=== PATIENT | female | born 1935 | race African-American/Black ===

== ENCOUNTER 2023-11-17 16:18 | Inpatient (IN) | payer OTHER ==
[2023-11-17] MEDS: LACTATED RINGERS SOLUTION 1000 ML INFUS.BAG IV ONE (18:10)
[2023-11-17 18:16] LABS: VENOUS BASE EXCESS -0.2 mmol/L (-2-2); VENOUS O2 SATURATION 63.7 % (70-80); VENOUS PH 7.376 (7.310-7.410)
[2023-11-17 18:24] LABS: BASO % 0.2 % (0-2.0); EOS % 0.1 % (0-4.5); HEMATOCRIT 39.5 % (32.4-45.2); HEMOGLOBIN 12.5 GM/dL (10.7-15.3); LYMPH % 15.6 % (8-40); MCH 29.8 pg (25.7-33.7); MCHC 31.6 g/dl (32.0-36.0); MEAN CELL VOLUME 94.3 fl (80-96); MEAN PLT VOLUME 9.2 fl (7.5-11.1); MONO % 12.6 % (3.8-10.2); NEUT % 71.5 % (42.8-82.8); PLATELET COUNT 131 10^3/uL (134-434); RBC 4.19 M/mm3 (3.60-5.2); RDW 14.6 % (11.6-15.6); WHITE BLOOD COUNT 7.9 K/mm3 (4.0-10.0)
[2023-11-17 18:25] LABS: INR 1.04 (0.83-1.09); PROTHROMBIN TIME (PATIENT) 12.1 SEC (9.7-13.0)
[2023-11-17 18:27] LABS: ACTIVATED PTT 26.7 SECONDS (25.2-36.5)
[2023-11-17 19:11] LABS: POTASSIUM 4.1 mmol/L (3.5-5.1)
[2023-11-17 19:15] LABS: ALBUMIN 3.1 g/dl (3.4-5.0); BLOOD UREA NITROGEN 13.7 mg/dL (7-18)
[2023-11-17 19:18] LABS: CREATININE 1.2 mg/dL (0.55-1.3)
[2023-11-17 19:20] LABS: BILIRUBIN,TOTAL 0.3 mg/dL (0.2-1); TOT PROT 7.7 g/dl (6.4-8.2)
[2023-11-17 19:22] LABS: PH,URINE 8.5 (5.0-8.0); URINE APPEARANCE CLEAR; URINE BILIRUBIN NEGATIVE (NEGATIVE); URINE COLOR YELLOW; URINE GLUCOSE (UA) NEGATIVE (NEGATIVE); URINE KETONE NEGATIVE (NEGATIVE); URINE LEUK ESTERASE NEGATIVE (NEGATIVE); URINE NITRITE NEGATIVE (NEGATIVE); URINE PROTEIN NEGATIVE (NEGATIVE); URINE UROBILINOGEN 0.2 mg/dL (0.2-1.0)
[2023-11-17] MEDS ORDERED: CEFTRIAXONE 1 GM/50 ML BAG ONE (19:25)
[2023-11-17] MEDS ORDERED: ACETAMINOPHEN INJECTION 100 ML IVPB ONE (19:25)
[2023-11-17] MEDS: ACETAMINOPHEN 1000 MG/100 ML BAG IVPB ONE (19:48)
[2023-11-17] MEDS: CEFTRIAXONE 1,000 MG in DEXTROSE 5%-WATER - 50 ML IVPB ONE (20:10)
[2023-11-17] MEDS ORDERED: DOXYCYCLINE HYCLATE 100 MG VIAL ONE (21:13)
[2023-11-17] MEDS ORDERED: DIVALPROEX SODIUM 500 MG TABLET E.C. ONE (21:13)
[2023-11-17] MEDS: DIVALPROEX NA *ER* EXTEND REL 500 MG TABLET.SA (FP) PO ONE (21:30)
[2023-11-17] MEDS: DOXYCYCLINE INJECTION 100 MG in DEXTROSE 5%-WATER 100 ML IVPB ONE (21:30)
[2023-11-17] MEDS ORDERED: ASPIRIN 81 MG CHEWABLE TABLETS ONE (21:47)
[2023-11-17] MEDS: ASPIRIN 81 MG CHEWABLE TABLETS PO ONE (21:57)
[2023-11-17 23:23] LABS: LACTIC ACID 2.5 mmol/L (0.4-2.0)
[2023-11-18] MEDS: SODIUM CHLORIDE 1,000 ML IV SCH (02:10)
[2023-11-18 07:37] LABS: POTASSIUM 4.1 mmol/L (3.5-5.1)
[2023-11-18 07:40] LABS: BASO % 0.6 % (0-2.0); EOS % 0.7 % (0-4.5); HEMATOCRIT 37.4 % (32.4-45.2); HEMOGLOBIN 12.3 GM/dL (10.7-15.3); LYMPH % 30.8 % (8-40); MCH 30.5 pg (25.7-33.7); MCHC 32.9 g/dl (32.0-36.0); MEAN CELL VOLUME 92.8 fl (80-96); MEAN PLT VOLUME 9.8 fl (7.5-11.1); MONO % 10.5 % (3.8-10.2); NEUT % 57.4 % (42.8-82.8); PLATELET COUNT 81 10^3/uL (134-434); RBC 4.03 M/mm3 (3.60-5.2); RDW 14.3 % (11.6-15.6); WHITE BLOOD COUNT 7.7 K/mm3 (4.0-10.0)
[2023-11-18 07:43] LABS: CALCIUM 9.3 mg/dL (8.5-10.1)
[2023-11-18 07:44] LABS: ALBUMIN 2.7 g/dl (3.4-5.0); BLOOD UREA NITROGEN 11.1 mg/dL (7-18); MAGNESIUM 2.2 mg/dL (1.8-2.4)
[2023-11-18 07:48] LABS: BILIRUBIN,TOTAL 0.5 mg/dL (0.2-1)
[2023-11-18 07:56] LABS: LACTIC ACID 2.1 mmol/L (0.4-2.0)
[2023-11-18] MEDS: ASPIRIN 81 MG CHEWABLE TABLETS PO SCH (09:54)
[2023-11-18] MEDS: ENOXAPARIN NA (PORCINE) 40 MG/0.4 ML DISP.SYRIN SQ SCH (09:54)
[2023-11-18] MEDS: TOLTERODINE TARTRATE LA 4 MG CAP.SR.24H (FP) PO SCH (09:54)
[2023-11-18] MEDS: PANTOPRAZOLE 40 MG TABLET PO SCH (09:54)
[2023-11-18] MEDS: CLOPIDOGREL BISULFATE 75 MG TABLET (FP) PO SCH (09:54)
[2023-11-18] MEDS ORDERED: PATIENT'S OWN MEDICATION (NON-FORMULARY) (Donepezil Hcl [Donepezil Hcl] 23 MG Tablet) PO SCH (10:00)
[2023-11-18] MEDS ORDERED: ASPIRIN COATED 81 MG TABLET.EC PO SCH (10:00)
[2023-11-18] MEDS: ERTAPENEM SODIUM 1 GM in SODIUM CHLORIDE 50 ML IVPB SCH (10:55)
[2023-11-18] MEDS: QUEtiapine FUMARATE 25 MG TABLET PO SCH (21:24)
[2023-11-18] MEDS: DIVALPROEX NA *ER* EXTEND REL 500 MG TABLET.SA (FP) PO SCH (21:24)
[2023-11-18] MEDS: ATORVASTATIN CA 40 MG TABLET (FP) PO SCH (21:25)
[2023-11-18] MEDS: MELATONIN 1 MG TABLET PO SCH (21:25)
[2023-11-19 08:08] LABS: HEMATOCRIT 31.9 % (32.4-45.2); HEMOGLOBIN 10.5 GM/dL (10.7-15.3); MCH 30.7 pg (25.7-33.7); MCHC 32.9 g/dl (32.0-36.0); MEAN CELL VOLUME 93.5 fl (80-96); MEAN PLT VOLUME 9.3 fl (7.5-11.1); PLATELET COUNT 141 10^3/uL (134-434); RBC 3.42 M/mm3 (3.60-5.2); RDW 14.3 % (11.6-15.6); WHITE BLOOD COUNT 6.4 K/mm3 (4.0-10.0)
[2023-11-19 08:29] LABS: BLOOD UREA NITROGEN 9.1 mg/dL (7-18); MAGNESIUM 2.2 mg/dL (1.8-2.4)
[2023-11-19 08:30] LABS: ALBUMIN 2.4 g/dl (3.4-5.0)
[2023-11-19 08:33] LABS: BILIRUBIN,TOTAL 0.4 mg/dL (0.2-1); CREATININE 0.8 mg/dL (0.55-1.3); TOT PROT 6.4 g/dl (6.4-8.2)
[2023-11-19 18:39] LABS: LACTIC ACID 2.1 mmol/L (0.4-2.0)
[2023-11-19] MEDS: SODIUM CHLORIDE 1,000 ML IV SCH (19:30)
[2023-11-20 07:32] LABS: POTASSIUM 4.1 mmol/L (3.5-5.1)
[2023-11-20 07:43] LABS: CALCIUM 8.6 mg/dL (8.5-10.1)
[2023-11-20 07:44] LABS: ALBUMIN 2.5 g/dl (3.4-5.0); BLOOD UREA NITROGEN 9.1 mg/dL (7-18); MAGNESIUM 2.2 mg/dL (1.8-2.4)
[2023-11-20 07:48] LABS: BILIRUBIN,TOTAL 0.4 mg/dL (0.2-1)
[2023-11-20 07:49] LABS: TOT PROT 6.3 g/dl (6.4-8.2)
[2023-11-20 08:25] LABS: HEMATOCRIT 33.7 % (32.4-45.2); MCH 30.7 pg (25.7-33.7); MCHC 32.8 g/dl (32.0-36.0); MEAN CELL VOLUME 93.7 fl (80-96); PLATELET COUNT 172 10^3/uL (134-434); WHITE BLOOD COUNT 6.6 K/mm3 (4.0-10.0)
[2023-11-20] MEDS: ACETAMINOPHEN 325 MG TABLET (FP) PO PRN (17:01)
[2023-11-21 08:20] LABS: POTASSIUM 3.9 mmol/L (3.5-5.1)
[2023-11-21 08:38] LABS: ALBUMIN 2.4 g/dl (3.4-5.0); BLOOD UREA NITROGEN 8.3 mg/dL (7-18); MAGNESIUM 2.5 mg/dL (1.8-2.4)
[2023-11-21 08:41] LABS: CREATININE 0.9 mg/dL (0.55-1.3)
[2023-11-21 08:43] LABS: BILIRUBIN,TOTAL 0.5 mg/dL (0.2-1); TOT PROT 6.5 g/dl (6.4-8.2)
[2023-11-21 08:49] LABS: BASO % 0.8 % (0-2.0); EOS % 0.2 % (0-4.5); HEMATOCRIT 34.7 % (32.4-45.2); HEMOGLOBIN 11.3 GM/dL (10.7-15.3); LYMPH % 20.4 % (8-40); MCH 30.2 pg (25.7-33.7); MCHC 32.5 g/dl (32.0-36.0); MEAN CELL VOLUME 93.2 fl (80-96); MEAN PLT VOLUME 8.8 fl (7.5-11.1); MONO % 10.2 % (3.8-10.2); NEUT % 68.4 % (42.8-82.8); PLATELET COUNT 205 10^3/uL (134-434); RBC 3.72 M/mm3 (3.60-5.2); RDW 13.9 % (11.6-15.6); WHITE BLOOD COUNT 7.5 K/mm3 (4.0-10.0)
[2023-11-21] MEDS: metoPROLOL SUCCINATE 25 MG TAB.SR.24H (FP) PO SCH (13:00)
[2023-11-21] MEDS: CEFEPIME HCL 1 GM VIAL (RESTRICTED TO ID) IVPB SCH (13:12)
[2023-11-21] MEDS: CEFEPIME 1 GM in DEXTROSE 5%-WATER 100 ML IVPB SCH (14:27)
[2023-11-21] MEDS: ACETAMINOPHEN 1000 MG/100 ML BAG IVPB PRN (21:41)
[2023-11-21] MEDS: DONEPEZIL HCL 5 MG TABLET (FP) PO SCH (22:04)
[2023-11-22 07:07] LABS: HEMATOCRIT 34.9 % (32.4-45.2); HEMOGLOBIN 11.5 GM/dL (10.7-15.3); MCH 31.2 pg (25.7-33.7); MEAN CELL VOLUME 94.5 fl (80-96); MEAN PLT VOLUME 8.6 fl (7.5-11.1); PLATELET COUNT 211 10^3/uL (134-434); RBC 3.69 M/mm3 (3.60-5.2); RDW 13.6 % (11.6-15.6); WHITE BLOOD COUNT 8.6 K/mm3 (4.0-10.0)
[2023-11-22 07:41] LABS: ALBUMIN 2.5 g/dl (3.4-5.0); BLOOD UREA NITROGEN 11.8 mg/dL (7-18); MAGNESIUM 2.3 mg/dL (1.8-2.4)
[2023-11-22 07:44] LABS: BILIRUBIN,TOTAL 0.4 mg/dL (0.2-1); PHOSPHOROUS 3.3 mg/dL (2.5-4.9); TOT PROT 6.8 g/dl (6.4-8.2); URIC ACID 3.9 mg/dL (2.6-7.2)
[2023-11-22] MEDS: ASPIRIN COATED 81 MG TABLET.EC PO SCH (10:37)
[2023-11-22] MEDS: MINERAL OIL ENEMA 133 ML ENEMA RC ONE (18:44)
[2023-11-23 08:33] LABS: HEMATOCRIT 32.2 % (32.4-45.2); HEMOGLOBIN 10.8 GM/dL (10.7-15.3); MCHC 33.5 g/dl (32.0-36.0); MEAN CELL VOLUME 92.6 fl (80-96); MEAN PLT VOLUME 8.4 fl (7.5-11.1); PLATELET COUNT 258 10^3/uL (134-434); RBC 3.48 M/mm3 (3.60-5.2); WHITE BLOOD COUNT 8.4 K/mm3 (4.0-10.0)
[2023-11-23 08:50] LABS: POTASSIUM 3.9 mmol/L (3.5-5.1)
[2023-11-23 08:56] LABS: CALCIUM 8.7 mg/dL (8.5-10.1)
[2023-11-23 08:57] LABS: ALBUMIN 2.3 g/dl (3.4-5.0); BLOOD UREA NITROGEN 11.5 mg/dL (7-18); MAGNESIUM 2.2 mg/dL (1.8-2.4); PHOSPHOROUS 2.7 mg/dL (2.5-4.9)
[2023-11-23 08:59] LABS: URIC ACID 3.7 mg/dL (2.6-7.2)
[2023-11-23 09:00] LABS: CREATININE 0.9 mg/dL (0.55-1.3); TOT PROT 6.4 g/dl (6.4-8.2)
[2023-11-23 09:02] LABS: BILIRUBIN,TOTAL 0.3 mg/dL (0.2-1)
[2023-11-23] MEDS ORDERED: ACETAMINOPHEN 1000 MG/100 ML BAG IVPB PRN (16:37)
[2023-11-23] MEDS: POLYETHYLENE GLYCOL (HEALTHYLAX) 3350 17 GM PACKET PO SCH (17:09)
[2023-11-23 19:25] LABS: BF WBC & OTHER NUCLEATED CELLS 10050 /mm3
[2023-11-23 19:27] LABS: BF WBC & OTHER NUCLEATED CELLS 8012 /mm3
[2023-11-23 20:52] LABS: BODY FLUID MACROPHAGES 1 %; BODY FLUID MONOCYTE 14 %; BODY FLUID MONOCYTE 5 %
[2023-11-24 07:46] LABS: HEMOGLOBIN 10.8 GM/dL (10.7-15.3); MCH 30.6 pg (25.7-33.7); MCHC 32.7 g/dl (32.0-36.0); MEAN CELL VOLUME 93.8 fl (80-96); MEAN PLT VOLUME 7.9 fl (7.5-11.1); PLATELET COUNT 317 10^3/uL (134-434); RBC 3.52 M/mm3 (3.60-5.2); RDW 13.9 % (11.6-15.6); WHITE BLOOD COUNT 7.5 K/mm3 (4.0-10.0)
[2023-11-24 08:21] LABS: POTASSIUM 4.2 mmol/L (3.5-5.1)
[2023-11-24 08:27] LABS: CALCIUM 8.9 mg/dL (8.5-10.1)
[2023-11-24 08:28] LABS: ALBUMIN 2.2 g/dl (3.4-5.0); BLOOD UREA NITROGEN 12.8 mg/dL (7-18); MAGNESIUM 2.3 mg/dL (1.8-2.4)
[2023-11-24 08:30] LABS: BILIRUBIN,TOTAL 0.4 mg/dL (0.2-1)
[2023-11-24 08:31] LABS: CREATININE 0.9 mg/dL (0.55-1.3); PHOSPHOROUS 2.7 mg/dL (2.5-4.9); TOT PROT 6.5 g/dl (6.4-8.2)
[2023-11-24] MEDS: SENNOSIDES 8.6MG TABLET (FP) PO ONE (10:04)
[2023-11-24 11:51] VITALS: BMI 24.6
[2023-11-24 17:35] LABS: BF WBC & OTHER NUCLEATED CELLS 2101 /mm3
[2023-11-24 17:36] LABS: BODY FLUID MESOTHELIAL 10 %; BODY FLUID MONOCYTE 20 %
[2023-11-24] MEDS: DOCUSATE SODIUM 100 MG CAPSULE (FP) PO SCH (22:05)
[2023-11-25 07:13] LABS: HEMATOCRIT 29.6 % (32.4-45.2); MCH 31.3 pg (25.7-33.7); MCHC 33.6 g/dl (32.0-36.0); MEAN CELL VOLUME 93.1 fl (80-96); MEAN PLT VOLUME 7.7 fl (7.5-11.1); PLATELET COUNT 321 10^3/uL (134-434); RBC 3.18 M/mm3 (3.60-5.2); WHITE BLOOD COUNT 5.8 K/mm3 (4.0-10.0)
[2023-11-25 07:27] LABS: POTASSIUM 3.9 mmol/L (3.5-5.1)
[2023-11-25 07:33] LABS: BLOOD UREA NITROGEN 15.7 mg/dL (7-18); CALCIUM 8.8 mg/dL (8.5-10.1)
[2023-11-25 07:34] LABS: MAGNESIUM 2.2 mg/dL (1.8-2.4)
[2023-11-25 07:36] LABS: CREATININE 0.8 mg/dL (0.55-1.3); PHOSPHOROUS 2.3 mg/dL (2.5-4.9)
[2023-11-25 07:38] LABS: BILIRUBIN,TOTAL 0.4 mg/dL (0.2-1); TOT PROT 5.8 g/dl (6.4-8.2)
[2023-11-25] MEDS: CEFUROXIME AXETIL 250 MG TABLET PO ONE (12:24)
[2023-11-25] MEDS: MAGNESIUM HYDROX 2400MG/30ML ORAL SUSPENSION 30 ML CUP PO ONE (14:28)
[2023-11-25] MEDS: ONDANSETRON *ODT* 4 MG TABLET SL ONE (16:31)
[2023-11-25] MEDS: FAMOTIDINE 20 MG TABLET PO ONE (16:31)
[2023-11-25] MEDS ORDERED: CEFUROXIME AXETIL 250 MG TABLET PO SCH (22:00)
[2023-11-25] MEDS ORDERED: CEFEPIME HCL 1 GM VIAL (RESTRICTED TO ID) IVPB SCH (22:00)
[2023-11-25] MEDS: CEFEPIME 1 GM in DEXTROSE 5%-WATER 100 ML IVPB SCH (23:50)
[2023-11-26 07:19] LABS: HEMATOCRIT 31.4 % (32.4-45.2); HEMOGLOBIN 10.1 GM/dL (10.7-15.3); MCH 30.1 pg (25.7-33.7); MCHC 32.1 g/dl (32.0-36.0); MEAN CELL VOLUME 93.8 fl (80-96); PLATELET COUNT 345 10^3/uL (134-434); RBC 3.35 M/mm3 (3.60-5.2); RDW 13.9 % (11.6-15.6); WHITE BLOOD COUNT 6.8 K/mm3 (4.0-10.0)
[2023-11-26 07:41] LABS: POTASSIUM 4.2 mmol/L (3.5-5.1)
[2023-11-26 07:49] LABS: CALCIUM 8.5 mg/dL (8.5-10.1)
[2023-11-26 07:50] LABS: BLOOD UREA NITROGEN 18.6 mg/dL (7-18); MAGNESIUM 2.3 mg/dL (1.8-2.4)
[2023-11-26 07:53] LABS: CREATININE 0.8 mg/dL (0.55-1.3); PHOSPHOROUS 2.4 mg/dL (2.5-4.9)
[2023-11-26 07:55] LABS: BILIRUBIN,TOTAL 0.4 mg/dL (0.2-1); TOT PROT 5.8 g/dl (6.4-8.2)
[2023-11-26 11:24] VITALS: BP 123/73; PULSE 72; RESP 16; TEMP 97.9
[2023-11-29 15:07] LABS: BODY FLUID ALBUMIN 1.8 g/dL (Not Estab.)
== END 2023-11-26 15:18 | disposition home or self-care (01) | DRG 177 ==
LOC: JER 16:18 → JERBED 19:35 → J4W 11-18 15:16
PROVIDERS: ADMIT Internal Medicine; ATTEND Internal Medicine
PROC: 0S9D3ZZ Drainage of Left Knee Joint, Percutaneous Approach (ICD-10-PCS; 2023-11-23)
PROC: 0S9C3ZZ Drainage of Right Knee Joint, Percutaneous Approach (ICD-10-PCS; 2023-11-23)
PROC: 0W993ZZ Drainage of Right Pleural Cavity, Percutaneous Approach (ICD-10-PCS; principal; 2023-11-24)
DX: J69.0 Pneumonitis due to inhalation of food and vomit (principal); G93.41 Metabolic encephalopathy; J98.11 Atelectasis; I24.89 Other forms of acute ischemic heart disease; F03.90 Unspecified dementia, unspecified severity, without behavioral disturbance, psychotic disturbance, mood disturbance, and anxiety; G25.0 Essential tremor; R29.810 Facial weakness; M25.462 Effusion, left knee; M25.461 Effusion, right knee; G40.909 Epilepsy, unspecified, not intractable, without status epilepticus
CPT/HCPCS: 0241U-QW; 36415; 70450-TC; 70551-TC; 71045-TC-FY; 71250-TC; 73560-TC-LT-FY; 73560-TC-RT-FY; 74230-TC-FY; 76604; 76604-TC; 76942; 80048; 80053; 80061; 80164; 81003; 82042; 82150; 82465; 82803; 82945; 82962; 83605; 83615; 83735; 83986; 84100; 84157; 84443; 84478; 84484; 84550; 85025; 85027; 85610; 85730; 86850; 86900; 86901; 87040; 87070; 87075; 87086; 87102; 87116; 87205; 87206; 87210; 87899; 88108; 88305-TC; 89060; 92611-GN; 93005; 93010; 93306-TC; 93308; 97116-GP; 97162-GP; 99285-25; J0131; Q0162

== ENCOUNTER 2024-01-26 00:47 | Observation (INO) | payer OTHER ==
[2024-01-26 01:52] LABS: BASO % 0.6 % (0-2.0); EOS % 1.1 % (0-4.5); HEMATOCRIT 32.3 % (32.4-45.2); HEMOGLOBIN 10.9 GM/dL (10.7-15.3); MCH 31.2 pg (25.7-33.7); MCHC 33.7 g/dl (32.0-36.0); MEAN CELL VOLUME 92.7 fl (80-96); MEAN PLT VOLUME 8.7 fl (7.5-11.1); NEUT % 33.3 % (42.8-82.8); PLATELET COUNT 163 10^3/uL (134-434); RBC 3.49 M/mm3 (3.60-5.2); RDW 14.8 % (11.6-15.6); WHITE BLOOD COUNT 5.7 K/mm3 (4.0-10.0)
[2024-01-26 02:03] LABS: CHLORIDE 104 mmol/L (98-107); POTASSIUM 4.8 mmol/L (3.5-5.1); SODIUM 136 mmol/L (136-145)
[2024-01-26 02:05] LABS: CALCIUM 8.9 mg/dL (8.5-10.1)
[2024-01-26 02:06] LABS: ALBUMIN 2.7 g/dl (3.4-5.0); ANION GAP 6 mmol/L (4-13); CO2 27 mmol/L (21-32)
[2024-01-26 02:07] LABS: GLUCOSE,RANDOM 86 mg/dL (74-106)
[2024-01-26 02:09] LABS: SGOT/AST 20 U/L (15-37)
[2024-01-26 02:10] LABS: CHOLESTEROL 115 mg/dL (50-200)
[2024-01-26 02:11] LABS: TOT PROT 6.2 g/dl (6.4-8.2)
[2024-01-26 02:12] LABS: BILIRUBIN,TOTAL 0.2 mg/dL (0.2-1); LDL CHOLESTEROL (ONLY SJRH) 63 mg/dL (5-100)
[2024-01-26 02:13] LABS: ALK PHOS 93 U/L (45-117); HDL CHOLESTEROL 44 mg/dL (40-60)
[2024-01-26 02:20] LABS: SGPT/ALT 17 U/L (13-61)
[2024-01-26 02:26] LABS: PH,URINE 7.5 (5.0-8.0); URINE APPEARANCE CLEAR; URINE BILIRUBIN NEGATIVE (NEGATIVE); URINE COLOR YELLOW; URINE GLUCOSE (UA) NEGATIVE (NEGATIVE); URINE KETONE NEGATIVE (NEGATIVE); URINE LEUK ESTERASE NEGATIVE (NEGATIVE); URINE NITRITE NEGATIVE (NEGATIVE); URINE PROTEIN NEGATIVE (NEGATIVE); URINE UROBILINOGEN 0.2 mg/dL (0.2-1.0)
[2024-01-26] MEDS ORDERED: ATORVASTATIN CA 80 MG TABLET (FP) ONE (02:59)
[2024-01-26] MEDS ORDERED: ASPIRIN 81 MG CHEWABLE TABLETS ONE (03:00)
[2024-01-26] MEDS: ASPIRIN 81 MG CHEWABLE TABLETS PO ONE (03:06)
[2024-01-26] MEDS: ATORVASTATIN CA 80 MG TABLET (FP) PO ONE (03:06)
[2024-01-26 07:19] LABS: BASO % 0.9 % (0-2.0); HEMATOCRIT 37.8 % (32.4-45.2); HEMOGLOBIN 12.4 GM/dL (10.7-15.3); MCH 30.6 pg (25.7-33.7); MCHC 32.7 g/dl (32.0-36.0); MEAN CELL VOLUME 93.3 fl (80-96); MONO % 7.5 % (3.8-10.2); NEUT % 40.6 % (42.8-82.8); PLATELET COUNT 174 10^3/uL (134-434); RBC 4.05 M/mm3 (3.60-5.2); RDW 14.6 % (11.6-15.6); WHITE BLOOD COUNT 5.6 K/mm3 (4.0-10.0)
[2024-01-26 07:36] LABS: POTASSIUM 4.3 mmol/L (3.5-5.1)
[2024-01-26 07:47] LABS: BLOOD UREA NITROGEN 15.2 mg/dL (7-18); MAGNESIUM 2.2 mg/dL (1.8-2.4)
[2024-01-26 07:50] LABS: PHOSPHOROUS 3.1 mg/dL (2.5-4.9)
[2024-01-26 07:52] LABS: TOT PROT 7.8 g/dl (6.4-8.2)
[2024-01-26 07:53] LABS: BILIRUBIN,TOTAL 0.3 mg/dL (0.2-1)
[2024-01-26 08:04] LABS: ALBUMIN 3.3 g/dl (3.4-5.0)
[2024-01-26] MEDS: ASPIRIN COATED 81 MG TABLET.EC PO SCH (09:27)
[2024-01-26] MEDS: ENOXAPARIN NA (PORCINE) 40 MG/0.4 ML DISP.SYRIN SQ SCH (09:27)
[2024-01-26] MEDS: metoPROLOL SUCCINATE 25 MG TAB.SR.24H (FP) PO SCH (09:27)
[2024-01-26] MEDS: ATORVASTATIN CA 40 MG TABLET (FP) PO SCH (21:56)
[2024-01-26] MEDS: QUEtiapine FUMARATE 25 MG TABLET PO SCH (21:56)
[2024-01-26] MEDS: DIVALPROEX NA *ER* EXTEND REL 500 MG TABLET.SA (FP) PO SCH (21:56)
[2024-01-28 07:24] LABS: BASO % 1.2 % (0-2.0); HEMATOCRIT 37.9 % (32.4-45.2); HEMOGLOBIN 12.5 GM/dL (10.7-15.3); LYMPH % 56.5 % (8-40); MEAN CELL VOLUME 93.9 fl (80-96); MEAN PLT VOLUME 9.4 fl (7.5-11.1); MONO % 7.8 % (3.8-10.2); NEUT % 31.5 % (42.8-82.8); PLATELET COUNT 160 10^3/uL (134-434); RBC 4.04 M/mm3 (3.60-5.2); WHITE BLOOD COUNT 5.4 K/mm3 (4.0-10.0)
[2024-01-28 07:51] LABS: MAGNESIUM 2.2 mg/dL (1.8-2.4)
[2024-01-28 07:55] LABS: PHOSPHOROUS 4.5 mg/dL (2.5-4.9)
[2024-01-28 08:48] VITALS: BP 132/48; PULSE 78; RESP 16; TEMP 97.7
[2024-01-28 13:22] VITALS: BMI 24.0
== END 2024-01-28 13:15 | disposition home or self-care (01) ==
LOC: JER 00:47 → JERBED 01:58 → J4W 04:58
PROVIDERS: ADMIT Internal Medicine
PROC: 3E023GC Introduction of Other Therapeutic Substance into Muscle, Percutaneous Approach (ICD-10-PCS; principal; 2024-01-26)
DX: G45.9 Transient cerebral ischemic attack, unspecified (principal); F03.90 Unspecified dementia, unspecified severity, without behavioral disturbance, psychotic disturbance, mood disturbance, and anxiety; G25.0 Essential tremor; R56.9 Unspecified convulsions; R29.810 Facial weakness; I25.10 Atherosclerotic heart disease of native coronary artery without angina pectoris; Z86.73 Personal history of transient ischemic attack (TIA), and cerebral infarction without residual deficits; Z88.0 Allergy status to penicillin; Z88.5 Allergy status to narcotic agent; Z91.011 Allergy to milk products; R63.4 Abnormal weight loss
CPT/HCPCS: 36415; 70450-TC; 70496-TC; 70498-TC; 70551-TC; 71045-TC-FY; 73030-TC-RT-FY; 74230-TC-FY; 80053; 80061; 80164; 81003; 82550; 82728; 82962; 83036; 83540; 83550; 83735; 84100; 84439; 84443; 84466; 84484; 85025; 85027; 85045; 87086; 92611-GN; 93005; 93010; 93306-TC; 93880-TC; 95816; 96372; 97116-GP; 97162-GP; 99291; G0378; Q9967

== ENCOUNTER 2024-02-01 18:10 | Inpatient (IN) | payer OTHER ==
[2024-02-01 19:17] LABS: BASO % 0.2 % (0-2.0); HEMATOCRIT 38.7 % (32.4-45.2); LYMPH % 13.1 % (8-40); MCH 31.2 pg (25.7-33.7); MCHC 33.5 g/dl (32.0-36.0); NEUT % 71.7 % (42.8-82.8); PLATELET COUNT 198 10^3/uL (134-434); RBC 4.16 M/mm3 (3.60-5.2); RDW 14.9 % (11.6-15.6); WHITE BLOOD COUNT 9.1 K/mm3 (4.0-10.0)
[2024-02-01 19:26] LABS: INR 0.98 (0.83-1.09); PROTHROMBIN TIME (PATIENT) 11.3 SEC (9.7-13.0)
[2024-02-01 19:29] LABS: ACTIVATED PTT 27.1 SECONDS (25.2-36.5)
[2024-02-01 19:31] LABS: CHLORIDE 100 mmol/L (98-107); POTASSIUM 4.8 mmol/L (3.5-5.1); SODIUM 130 mmol/L (136-145)
[2024-02-01 19:34] LABS: ALBUMIN 3.2 g/dl (3.4-5.0); CALCIUM 9.8 mg/dL (8.5-10.1); EPI CELLS 13 /uL (0-25.1); HYALINE CASTS 0 /uL (0-3.1); PH,URINE 7.5 (5.0-8.0); URINE APPEARANCE CLEAR; URINE BACTERIA 665 /uL (0-1359); URINE BILIRUBIN NEGATIVE (NEGATIVE); URINE COLOR YELLOW; URINE GLUCOSE (UA) NEGATIVE (NEGATIVE); URINE KETONE NEGATIVE (NEGATIVE); URINE LEUK ESTERASE NEGATIVE (NEGATIVE); URINE NITRITE NEGATIVE (NEGATIVE); URINE PROTEIN NEGATIVE (NEGATIVE); URINE RBC 37 /uL (0-23.9); URINE UROBILINOGEN 0.2 mg/dL (0.2-1.0); URINE WBC 5 /uL (0-25.8)
[2024-02-01 19:35] LABS: ANION GAP 5 mmol/L (4-13); BLOOD UREA NITROGEN 15.5 mg/dL (7-18); CO2 26 mmol/L (21-32); GLUCOSE,RANDOM 174 mg/dL (74-106)
[2024-02-01 19:38] LABS: CREATININE 1.1 mg/dL (0.55-1.3); SGOT/AST 34 U/L (15-37); SGPT/ALT 22 U/L (13-61)
[2024-02-01 19:39] LABS: CHOLESTEROL 135 mg/dL (50-200)
[2024-02-01 19:40] LABS: TOT PROT 7.6 g/dl (6.4-8.2)
[2024-02-01 19:41] LABS: BILIRUBIN,TOTAL 0.4 mg/dL (0.2-1); LDL CHOLESTEROL (ONLY SJRH) 71 mg/dL (5-100)
[2024-02-01 19:42] LABS: ALK PHOS 99 U/L (45-117); HDL CHOLESTEROL 52 mg/dL (40-60)
[2024-02-01 20:11] LABS: LACTIC ACID 2.1 mmol/L (0.4-2.0)
[2024-02-01] MEDS: SODIUM CHLORIDE 0.9% 500 ML INFUS.BAG IV ONE (20:20)
[2024-02-02] MEDS: DIVALPROEX NA *ER* EXTEND REL 500 MG TABLET.SA (FP) PO ONE (01:03)
[2024-02-02] MEDS: metoPROLOL SUCCINATE 25 MG TAB.SR.24H (FP) PO ONE (01:03)
[2024-02-02] MEDS: QUEtiapine FUMARATE 25 MG TABLET PO ONE (01:03)
[2024-02-02] MEDS ORDERED: VALPROATE SODIUM 500 MG/5 ML VIAL ONE (01:04)
[2024-02-02] MEDS: VALPROATE SODIUM 500 MG/5 ML VIAL IVPB SCH (01:11)
[2024-02-02] MEDS: DEXTROSE 5% IVPB SCH (01:12)
[2024-02-02] MEDS: WATER IVPB SCH (01:12)
[2024-02-02] MEDS: VALPROATE SODIUM IVPB SCH (01:12)
[2024-02-02] MEDS: metroNIDAZOLE 250 MG TABLET PO SCH (01:30)
[2024-02-02 07:32] LABS: BASO % 0.8 % (0-2.0); EOS % 0.2 % (0-4.5); HEMATOCRIT 34.2 % (32.4-45.2); HEMOGLOBIN 11.5 GM/dL (10.7-15.3); LYMPH % 27.4 % (8-40); MCH 31.2 pg (25.7-33.7); MCHC 33.6 g/dl (32.0-36.0); MEAN CELL VOLUME 92.9 fl (80-96); MEAN PLT VOLUME 9.3 fl (7.5-11.1); MONO % 13.8 % (3.8-10.2); NEUT % 57.8 % (42.8-82.8); PLATELET COUNT 157 10^3/uL (134-434); RBC 3.67 M/mm3 (3.60-5.2); RDW 14.8 % (11.6-15.6)
[2024-02-02 07:43] LABS: POTASSIUM 4.4 mmol/L (3.5-5.1)
[2024-02-02 07:47] LABS: CALCIUM 9.3 mg/dL (8.5-10.1)
[2024-02-02 07:49] LABS: MAGNESIUM 2.1 mg/dL (1.8-2.4)
[2024-02-02 07:51] LABS: BLOOD UREA NITROGEN 12.3 mg/dL (7-18); CREATININE 0.9 mg/dL (0.55-1.3); PHOSPHOROUS 2.1 mg/dL (2.5-4.9)
[2024-02-02 07:53] LABS: BILIRUBIN,TOTAL 0.4 mg/dL (0.2-1); TOT PROT 6.5 g/dl (6.4-8.2)
[2024-02-02 07:55] LABS: ALBUMIN 2.5 g/dl (3.4-5.0)
[2024-02-02] MEDS ORDERED: ENOXAPARIN NA (PORCINE) 40 MG/0.4 ML DISP.SYRIN SQ ONE (10:02)
[2024-02-02] MEDS: ENOXAPARIN NA (PORCINE) 40 MG/0.4 ML DISP.SYRIN SQ SCH (10:28)
[2024-02-02] MEDS: CEFEPIME 1 GM in DEXTROSE 5%-WATER 100 ML IVPB SCH ×2 (11:37→21:35)
[2024-02-02] MEDS: ASPIRIN COATED 81 MG TABLET.EC PO SCH (12:00)
[2024-02-02] MEDS: PANTOPRAZOLE 40 MG TABLET PO SCH (12:01)
[2024-02-02] MEDS: metoPROLOL SUCCINATE 25 MG TAB.SR.24H (FP) PO SCH (12:31)
[2024-02-02] MEDS: CALCIUM 500MG/VIT-D 200 UNITS COMBO TABLET (FP) PO SCH (12:31)
[2024-02-02] MEDS: NAPH,MB-DB/K PH,MBDB POWDER PACKET PO SCH ×2 (16:39→21:35)
[2024-02-02] MEDS: CEFEPIME HCL 1 GM VIAL (RESTRICTED TO ID) IVPB SCH (17:24)
[2024-02-02] MEDS: MELATONIN 1 MG TABLET PO SCH (21:35)
[2024-02-02] MEDS: ATORVASTATIN CA 40 MG TABLET (FP) PO SCH (21:35)
[2024-02-02] MEDS: DIVALPROEX NA *ER* EXTEND REL 500 MG TABLET.SA (FP) PO SCH (21:35)
[2024-02-02] MEDS: LACTOBACILLUS ACIDOPHILUS 1 TABLET PO SCH (21:35)
[2024-02-02] MEDS ORDERED: QUEtiapine FUMARATE 25 MG TABLET PO SCH (22:00)
[2024-02-02] MEDS ORDERED: DIVALPROEX NA *ER* EXTEND REL 250 MG TABLET.SA PO SCH (22:00)
[2024-02-02] MEDS ORDERED: DIVALPROEX NA *ER* EXTEND REL 500 MG TABLET.SA (FP) PO SCH (22:00)
[2024-02-03 06:51] LABS: HEMATOCRIT 34.2 % (32.4-45.2); HEMOGLOBIN 11.2 GM/dL (10.7-15.3); MCH 30.5 pg (25.7-33.7); MCHC 32.7 g/dl (32.0-36.0); MEAN CELL VOLUME 93.1 fl (80-96); MEAN PLT VOLUME 9.1 fl (7.5-11.1); PLATELET COUNT 178 10^3/uL (134-434); RBC 3.67 M/mm3 (3.60-5.2); RDW 14.9 % (11.6-15.6); WHITE BLOOD COUNT 6.1 K/mm3 (4.0-10.0)
[2024-02-03 06:54] LABS: POTASSIUM 4.3 mmol/L (3.5-5.1)
[2024-02-03 07:03] LABS: ALBUMIN 2.6 g/dl (3.4-5.0); BLOOD UREA NITROGEN 11.5 mg/dL (7-18)
[2024-02-03 07:04] LABS: BILIRUBIN,TOTAL 0.4 mg/dL (0.2-1)
[2024-02-03 07:06] LABS: CALCIUM 9.5 mg/dL (8.5-10.1); MAGNESIUM 2.2 mg/dL (1.8-2.4); PHOSPHOROUS 3.2 mg/dL (2.5-4.9); TOT PROT 6.6 g/dl (6.4-8.2)
[2024-02-03 12:11] VITALS: RESP 19
[2024-02-03 13:36] VITALS: BP 128/48; PULSE 71; TEMP 98.2
[2024-02-03 14:53] VITALS: BMI 23.6
[2024-02-03] MEDS ORDERED: NAPH,MB-DB/K PH,MBDB POWDER PACKET PO SCH (20:00)
[2024-02-03] MEDS ORDERED: DIVALPROEX NA *ER* EXTEND REL 250 MG TABLET.SA PO SCH (22:00)
== END 2024-02-03 15:39 | disposition home or self-care (01) | DRG 177 ==
LOC: JER 18:10 → JERBED 21:58 → J2W 02-02 10:23
PROVIDERS: ADMIT Internal Medicine; ATTEND Internal Medicine
DX: J69.0 Pneumonitis due to inhalation of food and vomit (principal); G92.8 Other toxic encephalopathy; E87.20 Acidosis, unspecified; F03.90 Unspecified dementia, unspecified severity, without behavioral disturbance, psychotic disturbance, mood disturbance, and anxiety; G40.909 Epilepsy, unspecified, not intractable, without status epilepticus; R41.82 Altered mental status, unspecified; Z88.0 Allergy status to penicillin; J32.0 Chronic maxillary sinusitis
CPT/HCPCS: 0241U-QW; 36415; 70450-TC; 70496-TC; 70498-TC; 71045-TC-FY; 71250-TC; 80053; 80061; 81003; 82550; 82553; 82962; 83036; 83605; 83735; 84100; 84484; 85025; 85027; 85610; 85730; 86850; 86900; 86901; 87040; 87086; 87899; 93005; 93010; 97116-GP; 97161-GP; 99291; Q9967

== ENCOUNTER 2024-02-21 14:28 | Inpatient (IN) | payer OTHER ==
[2024-02-21 18:41] LABS: URINE BILIRUBIN NEGATIVE (NEGATIVE); URINE COLOR YELLOW; URINE GLUCOSE (UA) NEGATIVE (NEGATIVE); URINE KETONE NEGATIVE (NEGATIVE); URINE LEUK ESTERASE NEGATIVE (NEGATIVE); URINE NITRITE NEGATIVE (NEGATIVE); URINE PROTEIN NEGATIVE (NEGATIVE)
[2024-02-21 18:48] LABS: BASO % 0.7 % (0-2.0); EOS % 0.5 % (0-4.5); HEMATOCRIT 32.5 % (32.4-45.2); HEMOGLOBIN 10.7 GM/dL (10.7-15.3); LYMPH % 22.7 % (8-40); MCH 30.2 pg (25.7-33.7); MCHC 32.9 g/dl (32.0-36.0); MEAN CELL VOLUME 91.9 fl (80-96); MEAN PLT VOLUME 8.1 fl (7.5-11.1); MONO % 9.6 % (3.8-10.2); NEUT % 66.5 % (42.8-82.8); PLATELET COUNT 223 10^3/uL (134-434); RBC 3.54 M/mm3 (3.60-5.2); RDW 15.3 % (11.6-15.6); WHITE BLOOD COUNT 7.6 K/mm3 (4.0-10.0)
[2024-02-21 19:06] LABS: POTASSIUM 4.1 mmol/L (3.5-5.1)
[2024-02-21 19:08] LABS: ALBUMIN 2.7 g/dl (3.4-5.0); BLOOD UREA NITROGEN 11.8 mg/dL (7-18); CALCIUM 9.6 mg/dL (8.5-10.1)
[2024-02-21 19:13] LABS: BILIRUBIN,TOTAL 0.5 mg/dL (0.2-1); TOT PROT 7.3 g/dl (6.4-8.2)
[2024-02-21 19:18] LABS: LACTIC ACID 2.6 mmol/L (0.4-2.0)
[2024-02-21 19:44] LABS: VENOUS BASE EXCESS 1.4 mmol/L (-2-2); VENOUS O2 SATURATION 95.8 % (70-80); VENOUS PCO2 31.8 mmHg (38-52); VENOUS PH 7.499 (7.310-7.410)
[2024-02-21] MEDS ORDERED: VANCOMYCIN 1 GRAM (PRE-DOCKED) 1,000 MG/250 ML BAG IVPB ONE (20:04)
[2024-02-21] MEDS ORDERED: ACETAMINOPHEN INJECTION 100 ML IVPB ONE (20:04)
[2024-02-21] MEDS ORDERED: CEFEPIME 2 GM/100 ML BAG IVPB ONE (20:05)
[2024-02-21] MEDS: ACETAMINOPHEN 1000 MG/100 ML BAG IVPB ONE (21:02)
[2024-02-21] MEDS: SODIUM CHLORIDE 0.9% 500 ML INFUS.BAG IV ONE (21:02)
[2024-02-21] MEDS: CEFEPIME HCL 2 GM VIAL (RESTRICTED TO ID) IVPB ONE (21:51)
[2024-02-21] MEDS: VANCOMYCIN 1,000 MG in DEXTROSE 5%-WATER - 250 ML IVPB ONE (22:43)
[2024-02-22] MEDS ORDERED: QUEtiapine FUMARATE 25 MG TABLET ONE (00:26)
[2024-02-22] MEDS: QUEtiapine FUMARATE 25 MG TABLET PO SCH (00:34)
[2024-02-22] MEDS: DIVALPROEX SODIUM 125 MG SPRINKLE CAPS PO SCH (00:58)
[2024-02-22 04:58] VITALS: BMI 23.8
[2024-02-22 08:21] LABS: HEMATOCRIT 30.4 % (32.4-45.2); HEMOGLOBIN 10.1 GM/dL (10.7-15.3); MCH 30.8 pg (25.7-33.7); MCHC 33.2 g/dl (32.0-36.0); MEAN CELL VOLUME 92.7 fl (80-96); PLATELET COUNT 215 10^3/uL (134-434); RBC 3.27 M/mm3 (3.60-5.2); RDW 14.8 % (11.6-15.6); WHITE BLOOD COUNT 6.5 K/mm3 (4.0-10.0)
[2024-02-22 08:23] LABS: POTASSIUM 3.7 mmol/L (3.5-5.1)
[2024-02-22 08:26] LABS: ALBUMIN 2.4 g/dl (3.4-5.0); BLOOD UREA NITROGEN 10.5 mg/dL (7-18); MAGNESIUM 2.4 mg/dL (1.8-2.4)
[2024-02-22 08:29] LABS: CREATININE 0.9 mg/dL (0.55-1.3); PHOSPHOROUS 3.1 mg/dL (2.5-4.9)
[2024-02-22 08:30] LABS: BILIRUBIN,TOTAL 0.6 mg/dL (0.2-1); TOT PROT 6.6 g/dl (6.4-8.2)
[2024-02-22] MEDS: ENOXAPARIN NA (PORCINE) 40 MG/0.4 ML DISP.SYRIN SQ SCH (09:51)
[2024-02-22] MEDS: CEFEPIME 1 GM in DEXTROSE 5%-WATER 100 ML IVPB SCH ×2 (09:51→21:56)
[2024-02-22] MEDS: PANTOPRAZOLE 40 MG TABLET PO SCH (09:52)
[2024-02-22] MEDS: ASPIRIN COATED 81 MG TABLET.EC PO SCH (09:52)
[2024-02-22] MEDS: CALCIUM 500MG/VIT-D 200 UNITS COMBO TABLET (FP) PO SCH (09:52)
[2024-02-22] MEDS: metoPROLOL SUCCINATE 25 MG TAB.SR.24H (FP) PO SCH (09:52)
[2024-02-22] MEDS: CEFEPIME HCL 1 GM VIAL (RESTRICTED TO ID) IVPB SCH (16:57)
[2024-02-22] MEDS: AMINO ACIDS 4.25%/D5W 1,000 ML IV SCH (17:02)
[2024-02-22] MEDS: MELATONIN 1 MG TABLET PO SCH (21:52)
[2024-02-22] MEDS: LACTOBACILLUS ACIDOPHILUS 1 TABLET PO SCH (21:53)
[2024-02-22] MEDS: ATORVASTATIN CA 40 MG TABLET (FP) PO SCH (21:53)
[2024-02-23 08:36] LABS: BASO % 0.7 % (0-2.0); EOS % 1.3 % (0-4.5); HEMATOCRIT 28.6 % (32.4-45.2); HEMOGLOBIN 9.5 GM/dL (10.7-15.3); LYMPH % 19.4 % (8-40); MCH 30.4 pg (25.7-33.7); MCHC 33.1 g/dl (32.0-36.0); MEAN CELL VOLUME 91.7 fl (80-96); MEAN PLT VOLUME 7.8 fl (7.5-11.1); MONO % 11.2 % (3.8-10.2); NEUT % 67.4 % (42.8-82.8); PLATELET COUNT 258 10^3/uL (134-434); RBC 3.12 M/mm3 (3.60-5.2); RDW 14.9 % (11.6-15.6); WHITE BLOOD COUNT 7.5 K/mm3 (4.0-10.0)
[2024-02-23 08:39] LABS: POTASSIUM 3.7 mmol/L (3.5-5.1)
[2024-02-23 08:49] LABS: CALCIUM 8.6 mg/dL (8.5-10.1)
[2024-02-23 08:50] LABS: BLOOD UREA NITROGEN 12.2 mg/dL (7-18); MAGNESIUM 2.1 mg/dL (1.8-2.4)
[2024-02-23 08:53] LABS: CREATININE 0.7 mg/dL (0.55-1.3)
[2024-02-23 08:54] LABS: TOT PROT 5.8 g/dl (6.4-8.2)
[2024-02-23 09:20] LABS: BILIRUBIN,TOTAL 0.5 mg/dL (0.2-1)
[2024-02-23 10:02] LABS: URINE APPEARANCE CLEAR
[2024-02-23] MEDS: VALPROATE SODIUM INJECTION 250 MG in SODIUM CHLORIDE 100 ML IVPB SCH (14:56)
[2024-02-23] MEDS: VALPROATE SODIUM 500 MG/5 ML VIAL IVPB SCH (15:09)
[2024-02-23] MEDS: ACETAMINOPHEN 1000 MG/100 ML BAG IVPB ONE (15:28)
[2024-02-23] MEDS ORDERED: LORazepam 2 MG/ML SDV VIAL IVPUSH PRN (18:12)
[2024-02-23] MEDS ORDERED: VALPROATE SODIUM INJECTION 250 MG in SODIUM CHLORIDE 100 ML IVPB SCH (22:00)
[2024-02-24 09:31] LABS: BASO % 0.5 % (0-2.0); EOS % 3.8 % (0-4.5); HEMATOCRIT 28.8 % (32.4-45.2); HEMOGLOBIN 9.6 GM/dL (10.7-15.3); LYMPH % 20.5 % (8-40); MCH 30.6 pg (25.7-33.7); MCHC 33.3 g/dl (32.0-36.0); MEAN CELL VOLUME 91.9 fl (80-96); MEAN PLT VOLUME 7.7 fl (7.5-11.1); MONO % 9.9 % (3.8-10.2); NEUT % 65.3 % (42.8-82.8); PLATELET COUNT 285 10^3/uL (134-434); RBC 3.13 M/mm3 (3.60-5.2); RDW 14.9 % (11.6-15.6); WHITE BLOOD COUNT 8.1 K/mm3 (4.0-10.0)
[2024-02-24 09:51] LABS: POTASSIUM 3.8 mmol/L (3.5-5.1)
[2024-02-24 09:55] LABS: ALBUMIN 2.1 g/dl (3.4-5.0); BLOOD UREA NITROGEN 13.5 mg/dL (7-18); CALCIUM 8.9 mg/dL (8.5-10.1); MAGNESIUM 2.2 mg/dL (1.8-2.4)
[2024-02-24 09:58] LABS: CREATININE 0.8 mg/dL (0.55-1.3)
[2024-02-24 10:00] LABS: BILIRUBIN,TOTAL 0.5 mg/dL (0.2-1)
[2024-02-24] MEDS: VALPROATE SODIUM INJECTION 250 MG in SODIUM CHLORIDE 100 ML IVPB SCH (11:30)
[2024-02-24] MEDS: BISACODYL 10 MG SUPP.RECT PR ONE (14:14)
[2024-02-24] MEDS: AMINO ACIDS 4.25%/D5W 2,000 ML IV SCH (15:21)
[2024-02-24] MEDS: VALPROATE SODIUM 500 MG/5 ML VIAL IVPB ONE (19:41)
[2024-02-24] MEDS: [UNRECOGNIZED DRUG - OTHER] IV SCH (19:42)
[2024-02-24] MEDS: AMINO ACID 8% IV SCH (19:42)
[2024-02-24] MEDS: VALPROATE SODIUM INJECTION 125 MG in SODIUM CHLORIDE 100 ML IVPB ONE (21:54)
[2024-02-24] MEDS: ACETAMINOPHEN 1000 MG/100 ML BAG IVPB PRN (23:09)
[2024-02-25 08:10] LABS: BASO % 0.5 % (0-2.0); EOS % 0.6 % (0-4.5); HEMATOCRIT 30.8 % (32.4-45.2); HEMOGLOBIN 10.1 GM/dL (10.7-15.3); LYMPH % 19.1 % (8-40); MCH 30.2 pg (25.7-33.7); MCHC 32.9 g/dl (32.0-36.0); MEAN CELL VOLUME 91.8 fl (80-96); MEAN PLT VOLUME 7.8 fl (7.5-11.1); MONO % 13.1 % (3.8-10.2); NEUT % 66.7 % (42.8-82.8); PLATELET COUNT 313 10^3/uL (134-434); RBC 3.35 M/mm3 (3.60-5.2); RDW 14.9 % (11.6-15.6); WHITE BLOOD COUNT 8.1 K/mm3 (4.0-10.0)
[2024-02-25 08:23] LABS: POTASSIUM 3.4 mmol/L (3.5-5.1)
[2024-02-25 08:26] LABS: CALCIUM 8.7 mg/dL (8.5-10.1)
[2024-02-25 08:27] LABS: BLOOD UREA NITROGEN 14.9 mg/dL (7-18)
[2024-02-25 08:29] LABS: CREATININE 0.7 mg/dL (0.55-1.3)
[2024-02-25 08:31] LABS: BILIRUBIN,TOTAL 0.5 mg/dL (0.2-1); TOT PROT 6.2 g/dl (6.4-8.2)
[2024-02-25] MEDS: SCOPOLAMINE HYDROBROMIDE 1 PATCH PATCH.TD72 TD SCH (09:58)
[2024-02-25] MEDS: VALPROATE SODIUM INJECTION 125 MG in SODIUM CHLORIDE 100 ML IVPB SCH (09:58)
[2024-02-25] MEDS ORDERED: VALPROATE SODIUM 500 MG/5 ML VIAL IVPB SCH (10:00)
[2024-02-25] MEDS: AMINO ACIDS 4.25%/D5W 2,000 ML IV SCH (10:18)
[2024-02-25] MEDS: KCL 10 MEQ IVPB 10 MEQ/100 ML INFUS.BAG IVPB SCH (10:23)
[2024-02-25] MEDS: PANTOPRAZOLE SODIUM 40 MG in SODIUM CHLORIDE 100 ML IVPB SCH (10:23)
[2024-02-25] MEDS: METOPROLOL TARTRATE 5 MG/5 ML VIAL IVPB SCH ×2 (10:23)
[2024-02-25] MEDS: PANTOPRAZOLE SODIUM 40 MG VIAL IVPUSH SCH (10:23)
[2024-02-25] MEDS: VALPROATE SODIUM INJECTION 250 MG in SODIUM CHLORIDE 100 ML IVPB SCH (22:06)
[2024-02-25] MEDS: POTASSIUM CHLORIDE 20 MEQ in AMINO ACIDS 4.25%/D5W 2,000 ML IV SCH (23:30)
[2024-02-26 08:22] LABS: BASO % 0.4 % (0-2.0); EOS % 0.8 % (0-4.5); HEMOGLOBIN 10.1 GM/dL (10.7-15.3); LYMPH % 17.1 % (8-40); MCH 31.1 pg (25.7-33.7); MCHC 33.8 g/dl (32.0-36.0); MEAN CELL VOLUME 92.1 fl (80-96); MEAN PLT VOLUME 7.6 fl (7.5-11.1); MONO % 10.8 % (3.8-10.2); NEUT % 70.9 % (42.8-82.8); PLATELET COUNT 339 10^3/uL (134-434); RBC 3.25 M/mm3 (3.60-5.2); RDW 14.8 % (11.6-15.6); WHITE BLOOD COUNT 8.4 K/mm3 (4.0-10.0)
[2024-02-26 08:23] LABS: INR 1.47 (0.83-1.09); PROTHROMBIN TIME (PATIENT) 16.4 SEC (9.7-13.0)
[2024-02-26 08:32] LABS: POTASSIUM 3.2 mmol/L (3.5-5.1)
[2024-02-26 08:36] LABS: ALBUMIN 2.1 g/dl (3.4-5.0); BLOOD UREA NITROGEN 18.3 mg/dL (7-18); MAGNESIUM 1.9 mg/dL (1.8-2.4)
[2024-02-26 08:37] LABS: CALCIUM 8.7 mg/dL (8.5-10.1)
[2024-02-26 08:39] LABS: CREATININE 0.7 mg/dL (0.55-1.3)
[2024-02-26 08:40] LABS: BILIRUBIN,TOTAL 0.7 mg/dL (0.2-1); TOT PROT 6.2 g/dl (6.4-8.2)
[2024-02-26] MEDS: KCL 10 MEQ IVPB 10 MEQ/100 ML INFUS.BAG IVPB SCH (12:42)
[2024-02-26 12:50] LABS: PHOSPHOROUS 1.4 mg/dL (2.5-4.9)
[2024-02-26] MEDS: THIAMINE HCL 200 MG/2 ML VIAL IVPB SCH (13:12)
[2024-02-26] MEDS ORDERED: POTASSIUM CHLORIDE 20 MEQ in AMINO ACIDS 4.25%/D5W 2,000 ML IV SCH (14:00)
[2024-02-26] MEDS: POTASSIUM CHLORIDE 20 MEQ in AMINO ACIDS 4.25%/D5W 2,000 ML IV SCH (14:10)
[2024-02-26] MEDS: POTASSIUM PHOSPHATE 15 MM in SODIUM CHLORIDE 250 ML IVPB ONE (15:30)
[2024-02-26 15:42] LABS: MAGNESIUM 1.9 mg/dL (1.8-2.4)
[2024-02-26 15:46] LABS: PHOSPHOROUS 1.5 mg/dL (2.5-4.9)
[2024-02-27] MEDS: POTASSIUM CHLORIDE 20 MEQ in AMINO ACIDS 4.25%/D5W 1,000 ML IV SCH (02:49)
[2024-02-27] MEDS ORDERED: POTASSIUM CHLORIDE 20 MEQ in AMINO ACIDS 4.25%/D5W 2,000 ML IV SCH (03:00)
[2024-02-27 08:52] LABS: BASO % 0.3 % (0-2.0); EOS % 0.6 % (0-4.5); HEMOGLOBIN 10.6 GM/dL (10.7-15.3); LYMPH % 15.2 % (8-40); MCH 30.2 pg (25.7-33.7); MCHC 33.2 g/dl (32.0-36.0); MEAN CELL VOLUME 90.9 fl (80-96); MEAN PLT VOLUME 7.6 fl (7.5-11.1); MONO % 10.8 % (3.8-10.2); NEUT % 73.1 % (42.8-82.8); PLATELET COUNT 398 10^3/uL (134-434); RBC 3.52 M/mm3 (3.60-5.2); RDW 15.1 % (11.6-15.6)
[2024-02-27 09:11] LABS: CALCIUM 8.8 mg/dL (8.5-10.1)
[2024-02-27 09:12] LABS: BLOOD UREA NITROGEN 15.6 mg/dL (7-18); MAGNESIUM 1.9 mg/dL (1.8-2.4)
[2024-02-27 09:16] LABS: CREATININE 0.6 mg/dL (0.55-1.3)
[2024-02-27 09:17] LABS: BILIRUBIN,TOTAL 0.4 mg/dL (0.2-1)
[2024-02-27 09:18] LABS: TOT PROT 6.3 g/dl (6.4-8.2)
[2024-02-27 10:54] LABS: PHOSPHOROUS 2.3 mg/dL (2.5-4.9)
[2024-02-28 09:10] LABS: BASO % 0.6 % (0-2.0); EOS % 0.3 % (0-4.5); HEMATOCRIT 29.8 % (32.4-45.2); HEMOGLOBIN 9.9 GM/dL (10.7-15.3); MCH 30.3 pg (25.7-33.7); MCHC 33.1 g/dl (32.0-36.0); MEAN CELL VOLUME 91.5 fl (80-96); MEAN PLT VOLUME 8.1 fl (7.5-11.1); MONO % 10.6 % (3.8-10.2); NEUT % 70.5 % (42.8-82.8); PLATELET COUNT 367 10^3/uL (134-434); RBC 3.26 M/mm3 (3.60-5.2); RDW 15.1 % (11.6-15.6); WHITE BLOOD COUNT 8.8 K/mm3 (4.0-10.0)
[2024-02-28 09:24] LABS: POTASSIUM 3.9 mmol/L (3.5-5.1)
[2024-02-28 09:39] LABS: CALCIUM 8.6 mg/dL (8.5-10.1)
[2024-02-28 09:40] LABS: ALBUMIN 1.9 g/dl (3.4-5.0); BLOOD UREA NITROGEN 15.2 mg/dL (7-18); MAGNESIUM 1.8 mg/dL (1.8-2.4)
[2024-02-28 09:41] LABS: CREATININE 0.6 mg/dL (0.55-1.3)
[2024-02-28 09:43] LABS: BILIRUBIN,TOTAL 0.4 mg/dL (0.2-1)
[2024-02-29 09:25] LABS: BASO % 0.3 % (0-2.0); EOS % 0.2 % (0-4.5); HEMATOCRIT 29.9 % (32.4-45.2); HEMOGLOBIN 9.9 GM/dL (10.7-15.3); LYMPH % 14.7 % (8-40); MCH 29.8 pg (25.7-33.7); MEAN CELL VOLUME 90.2 fl (80-96); MEAN PLT VOLUME 7.6 fl (7.5-11.1); MONO % 9.1 % (3.8-10.2); NEUT % 75.7 % (42.8-82.8); PLATELET COUNT 436 10^3/uL (134-434); RBC 3.31 M/mm3 (3.60-5.2); RDW 15.2 % (11.6-15.6); WHITE BLOOD COUNT 10.6 K/mm3 (4.0-10.0)
[2024-02-29 09:33] LABS: POTASSIUM 3.4 mmol/L (3.5-5.1)
[2024-02-29 09:47] LABS: CALCIUM 8.8 mg/dL (8.5-10.1)
[2024-02-29 09:48] LABS: BLOOD UREA NITROGEN 15.3 mg/dL (7-18); MAGNESIUM 1.9 mg/dL (1.8-2.4)
[2024-02-29 09:51] LABS: CREATININE 0.6 mg/dL (0.55-1.3)
[2024-02-29 09:52] LABS: BILIRUBIN,TOTAL 0.3 mg/dL (0.2-1); TOT PROT 6.2 g/dl (6.4-8.2)
[2024-02-29] MEDS ORDERED: FENTANYL CITRATE/PF 50 MCG/ML VIAL ONE (13:27)
[2024-02-29] MEDS ORDERED: GLUCAGON 1 MG KIT ONE (13:28)
[2024-02-29] MEDS: GLUCAGON 1 MG KIT IVPUSH ONE (14:57)
[2024-02-29] MEDS: POTASSIUM CHLORIDE ORAL LIQUID 20 MEQ/15 ML NGT ONE (17:07)
[2024-02-29 17:17] LABS: PHOSPHOROUS 2.5 mg/dL (2.5-4.9)
[2024-02-29] MEDS ORDERED: POTASSIUM CHLORIDE ORAL LIQUID 20 MEQ/15 ML GT ONE (18:00)
[2024-02-29] MEDS: VALPROATE SODIUM 250 MG/5 ML UNIT DOSE CUP NGT SCH (21:32)
[2024-03-01 08:09] LABS: CALCIUM 8.7 mg/dL (8.5-10.1)
[2024-03-01 08:10] LABS: ALBUMIN 1.8 g/dl (3.4-5.0); BASO % 0.2 % (0-2.0); BLOOD UREA NITROGEN 15.1 mg/dL (7-18); CREATININE 0.6 mg/dL (0.55-1.3); HEMATOCRIT 27.6 % (32.4-45.2); HEMOGLOBIN 9.4 GM/dL (10.7-15.3); LYMPH % 12.2 % (8-40); MAGNESIUM 1.9 mg/dL (1.8-2.4); MCH 30.5 pg (25.7-33.7); MEAN CELL VOLUME 89.7 fl (80-96); MEAN PLT VOLUME 7.3 fl (7.5-11.1); MONO % 8.9 % (3.8-10.2); NEUT % 78.7 % (42.8-82.8); PLATELET COUNT 417 10^3/uL (134-434); RBC 3.07 M/mm3 (3.60-5.2); RDW 15.4 % (11.6-15.6); WHITE BLOOD COUNT 10.5 K/mm3 (4.0-10.0)
[2024-03-01 08:12] LABS: TOT PROT 6.2 g/dl (6.4-8.2)
[2024-03-01 08:16] LABS: BILIRUBIN,TOTAL 0.4 mg/dL (0.2-1)
[2024-03-01] MEDS: VALPROATE SODIUM 250 MG/5 ML UNIT DOSE CUP NGT SCH (09:12)
[2024-03-01] MEDS: THIAMINE 100 MG TABLET NGT SCH (09:12)
[2024-03-02 09:58] LABS: BASO % 0.6 % (0-2.0); EOS % 0.1 % (0-4.5); HEMATOCRIT 28.8 % (32.4-45.2); HEMOGLOBIN 9.8 GM/dL (10.7-15.3); LYMPH % 12.8 % (8-40); MCH 30.7 pg (25.7-33.7); MEAN CELL VOLUME 90.3 fl (80-96); MEAN PLT VOLUME 7.4 fl (7.5-11.1); NEUT % 79.5 % (42.8-82.8); PLATELET COUNT 494 10^3/uL (134-434); RBC 3.19 M/mm3 (3.60-5.2); RDW 15.1 % (11.6-15.6); WHITE BLOOD COUNT 10.8 K/mm3 (4.0-10.0)
[2024-03-02 10:16] LABS: CALCIUM 8.7 mg/dL (8.5-10.1)
[2024-03-02 10:17] LABS: ALBUMIN 1.9 g/dl (3.4-5.0); BLOOD UREA NITROGEN 16.8 mg/dL (7-18)
[2024-03-02 10:20] LABS: CREATININE 0.6 mg/dL (0.55-1.3)
[2024-03-02 10:21] LABS: TOT PROT 6.7 g/dl (6.4-8.2)
[2024-03-02 10:22] LABS: BILIRUBIN,TOTAL 0.3 mg/dL (0.2-1)
[2024-03-03 10:48] VITALS: RESP 18
[2024-03-03] MEDS: ACETAMINOPHEN 1000 MG/100 ML BAG IVPB ONE (14:01)
[2024-03-03 23:08] LABS: EPI CELLS >36 /uL (0-25.1); HYALINE CASTS 3 /uL (0-3.1); URINE APPEARANCE CLOUDY; URINE BACTERIA 5 /uL (0-1359); URINE BILIRUBIN NEGATIVE (NEGATIVE); URINE COLOR DK YELLOW; URINE GLUCOSE (UA) NEGATIVE (NEGATIVE); URINE KETONE TRACE (NEGATIVE); URINE LEUK ESTERASE NEGATIVE (NEGATIVE); URINE NITRITE NEGATIVE (NEGATIVE); URINE PROTEIN 1+ (NEGATIVE); URINE RBC 7 /uL (0-23.9); URINE WBC 32 /uL (0-25.8)
[2024-03-03 23:29] LABS: URINE CRYSTALS PRESENT /hpf
[2024-03-04] MEDS: ACETAMINOPHEN 1000 MG/100 ML BAG IVPB ONE (06:32)
[2024-03-04 08:30] LABS: POTASSIUM 4.5 mmol/L (3.5-5.1)
[2024-03-04 08:33] LABS: HEMATOCRIT 28.6 % (32.4-45.2); HEMOGLOBIN 9.6 GM/dL (10.7-15.3); MCH 29.8 pg (25.7-33.7); MCHC 33.5 g/dl (32.0-36.0); MEAN CELL VOLUME 88.8 fl (80-96); MEAN PLT VOLUME 7.3 fl (7.5-11.1); PLATELET COUNT 546 10^3/uL (134-434); RBC 3.22 M/mm3 (3.60-5.2); RDW 15.5 % (11.6-15.6); WHITE BLOOD COUNT 8.3 K/mm3 (4.0-10.0)
[2024-03-04 08:48] LABS: CALCIUM 8.6 mg/dL (8.5-10.1)
[2024-03-04 08:49] LABS: BLOOD UREA NITROGEN 14.7 mg/dL (7-18); MAGNESIUM 2.1 mg/dL (1.8-2.4)
[2024-03-04 08:52] LABS: CREATININE 0.5 mg/dL (0.55-1.3); PHOSPHOROUS 2.5 mg/dL (2.5-4.9)
[2024-03-04] MEDS ORDERED: ACETAMINOPHEN 1000 MG/100 ML BAG IVPB PRN (12:00)
[2024-03-04] MEDS: DOCUSATE NA 100 MG/10 ML UNIT-DOSE CUPS GT SCH (14:25)
[2024-03-05 07:51] LABS: HEMOGLOBIN 9.2 GM/dL (10.7-15.3); MCH 30.3 pg (25.7-33.7); MCHC 33.9 g/dl (32.0-36.0); MEAN CELL VOLUME 89.4 fl (80-96); MEAN PLT VOLUME 7.2 fl (7.5-11.1); PLATELET COUNT 537 10^3/uL (134-434); RBC 3.03 M/mm3 (3.60-5.2); RDW 15.6 % (11.6-15.6); WHITE BLOOD COUNT 8.1 K/mm3 (4.0-10.0)
[2024-03-05 08:11] LABS: POTASSIUM 4.8 mmol/L (3.5-5.1)
[2024-03-05 08:13] LABS: CALCIUM 8.6 mg/dL (8.5-10.1)
[2024-03-05 08:15] LABS: MAGNESIUM 1.9 mg/dL (1.8-2.4)
[2024-03-05 08:17] LABS: PHOSPHOROUS 2.8 mg/dL (2.5-4.9)
[2024-03-05 08:18] LABS: CREATININE 0.6 mg/dL (0.55-1.3)
[2024-03-05 15:45] VITALS: BP 142/60; PULSE 80; TEMP 98.4
== END 2024-03-05 20:50 | DRG 177 ==
LOC: JER 14:28 → JERBED 19:12 → J8W 02-22 03:06
PROVIDERS: ADMIT Internal Medicine; ATTEND Nurse Practitioner Acute Care
PROC: 0DH63UZ Insertion of Feeding Device into Stomach, Percutaneous Approach (ICD-10-PCS; principal; 2024-02-29)
PROC: BD12YZZ Fluoroscopy of Stomach using Other Contrast (ICD-10-PCS; 2024-02-29)
DX: J69.0 Pneumonitis due to inhalation of food and vomit (principal); G93.41 Metabolic encephalopathy; G93.1 Anoxic brain damage, not elsewhere classified; F03.90 Unspecified dementia, unspecified severity, without behavioral disturbance, psychotic disturbance, mood disturbance, and anxiety; G40.909 Epilepsy, unspecified, not intractable, without status epilepticus; E78.5 Hyperlipidemia, unspecified; E83.39 Other disorders of phosphorus metabolism; Z75.1 Person awaiting admission to adequate facility elsewhere; R13.10 Dysphagia, unspecified
CPT/HCPCS: 0241U-QW; 36415; 49440; 70450-TC; 71045-TC-FY; 74018-TC-FY; 74230-TC-FY; 80048; 80053; 80164; 81003; 82803; 82962; 83605; 83735; 84100; 84484; 85025; 85027; 85610; 85730; 86850; 86900; 86901; 87040; 87086; 87635; 92611-GN; 93005; 93010; 97116-GP; 97162-GP; 99291; J0131